=== PATIENT | male | born 1935 | race Caucasian/White ===

== ENCOUNTER 2016-08-22 09:04 | Outpatient (CLI) ==
[2016-05-14 18:26] VITALS: BMI 27.8
[2016-08-22 09:21] LABS: BILIRUBIN,URINE Negative (NEGATIVE); KETONES,URINE Negative (NEGATIVE); LEUKOCYTE ESTERASE ,URINE 2+ (NEGATIVE); NITRITE,URINE Positive (NEGATIVE); PROTEIN,URINE Negative (NEGATIVE); URINE, BLOOD Trace-intact (NEGATIVE)
[2016-08-22 09:23] LABS: ADD URINE MICROSCOPIC YES
== END 2016-08-22 09:05 | disposition home or self-care (01) ==
LOC: NONPT 09:04
PROVIDERS: ATTEND Emergency Medicine
DX: N39.0 Urinary tract infection, site not specified (principal)
CPT/HCPCS: 81001; 87086; 87186

== ENCOUNTER 2016-09-06 22:30 | Outpatient (CLI) ==
[2016-09-06 22:58] VITALS: BMI 21.9
== END 2016-09-06 22:31 | disposition home or self-care (01) ==
LOC: AMBL 22:30
PROVIDERS: ATTEND Internal Medicine Geriatric Medicine
DX: R68.0 Hypothermia, not associated with low environmental temperature (principal)

== ENCOUNTER 2016-09-06 22:42 | Emergency (ER) ==
[2016-09-06] MEDS ORDERED: SODIUM CHLORIDE 1,000 ML IV STA (22:43)
--- NOTE | 2016-09-06 22:50 | ED.PDOC ---
General ED Provider: Dr. CHELLE CHAVES Chief Complaint: Non-specific Complaint Stated Complaint: patient is brought from the skilled nursing with confusion, hallucination and low body temperature. worried about sepsis. Time Seen by Physician: 22:48 Information Source: [facility] Exam Limitations: No limitations Primary Care Provider: JUMANA CALIX Nursing and Triage Documentation Reviewed and Agree: Yes Neurological Complaint Exam - Altered Mental Status Complaint/Exam Current Mental Status: Confusion Last Known Well: yesterday Onset: Sudden Symptoms Are: Resolved Timing: Intermittent Initial Severity: Mild Current Severity: None Character: Reports: Confusion Aggravating: Reports: None Alleviating: Reports: Spontaneous resolution Associated Signs and Symptoms: Denies: Dizziness, Weakness, Headache, Fever, Illness, Nuchal rigidity, Seizure, Nausea, Vomiting, Recently depressed, Trauma Cardiac Risk Factors: Reports: None CVA Risk Factors: Reports: None Related Surgical History: Reports: None Carotid Bruit Present: Yes Glascow Coma Scale (see protocol): 15 Nystagmus Present: No Gag Reflex Present: Yes Meningeal Signs Positive: No Focal Weakness: Present: None Focal Sensory Loss: Present: None Gait: Unable [id number]: Normal Findings Romberg Test Positive: No Babinski Sign: Negative Right, Negative Left Heel to Toe Normal: Yes Signs of Injury: Present: Normal findings Thrombolytics Considered: No Differential Diagnoses: Metabolic Disorder, Hypoglycemia, TIA Review of Systems - Review Of Systems Constitutional: Reports: No symptoms Eyes: Reports: No symptoms Ears, Nose, Mouth, Throat: Reports: No symptoms Respiratory: Reports: No symptoms Cardiac: Reports: No symptoms GI: Reports: No symptoms : Reports: No symptoms Musculoskeletal: Reports: No symptoms Skin: Reports: No symptoms Neurological: Reports: No symptoms Endocrine: Reports: No symptoms Hematologic/Lymphatic: Reports: No symptoms All Other Systems: Reviewed and Negative Past Medical History - Past Medical History Previously Healthy: No Endocrine: Reports: Dyslipidemia Cardiovascular: Reports: Hypertension Respiratory: Reports: COPD Hematological: Reports: None Gastrointestinal: Reports: None Genitourinary: Reports: None Neuro/Psych: Reports: None Musculoskeletal: Reports: None Cancer: Reports: None - Surgical History General Surgical History: Reports: Unknown - Family History Family History: Reports: Unknown - Social History Smoking Status: Former smoker Hx Substance Use: No Alcohol Screening: Occasionally Physical Exam - Physical Exam Appearance: Well-appearing, No pain distress, Well-nourished Eyes: CELIA, EOMI, Conjunctiva clear ENT: Ears normal, Nose normal, Oropharynx normal Respiratory: Airway patent, Breath sounds clear, Breath sounds equal, Respirations nonlabored Cardiovascular: RRR, Pulses normal, No rub, No murmur GI/: Soft, Nontender, No masses, Bowel sounds normal, No Organomegaly Musculoskeletal: Normal strength, ROM intact, No edema, No calf tenderness Skin: Warm, Dry, Normal color Neurological: Sensation intact, Motor intact, Cranial nerves intact, Alert, Oriented Psychiatric: Affect appropriate, Mood appropriate Interpretation - Radiology Interpretation Radiology Interpretation By: Radiologist Radiology Results: No acute changes Exam Interpreted: CT Scan Re-Evaluation - Re-Evaluation Time of Re-Evaluation: 01:37 Status: Improved (patient states he feels better than he did few days ago when he was having a UTI ) Critical Care Note - Critical Care Note Total Time (mins): 15 Course - Course Hematology/Chemistry: 09/06/16 23:00 09/06/16 23:00 Orders, Labs, Meds: Lab Review 09/06/16 09/07/16 23:00 01:00 WBC 9.26 RBC 4.06 L Hgb 11.1 L Hct 33.7 L MCV 83.0 MCH 27.3 MCHC 32.9 RDW Coeff of Rosa 16.2 H Plt Count 158 Immature Gran % (Auto) 0.5 Neut % (Auto) 70.9 Lymph % (Auto) 11.6 Nash % (Auto) 12.4 H Eos % (Auto) 4.2 Baso % (Auto) 0.4 Immature Gran # (Auto) 0.1 Neut # 6.6 Lymph # 1.1 Nash # 1.2 Eos # 0.4 Baso # 0.0 Sodium 132 L Potassium 4.2 Chloride 93 L Carbon Dioxide 32 H Anion Gap 11.2 BUN 22 H Creatinine 0.79 Estimated GFR (MDRD) 94.00 BUN/Creatinine Ratio 27.84 Glucose 89 Lactic Acid 4.9 Calcium 9.2 Total Bilirubin 0.38 AST 30 ALT 17 Alkaline Phosphatase 81 Total Creatine Kinase 243 CK-MB (CK-2) 9.1 H* CK-MB (CK-2) % 3.27392 Troponin I < 0.0100 Total Protein 5.9 Albumin 2.9 L Globulin 3.0 Albumin/Globulin Ratio 0.97 Procalcitonin < 0.05 Urine Color Yellow Urine Clarity Clear Urine pH 5.5 Ur Specific [place] 1.010 Urine Protein Negative Urine Glucose (UA) Negative Urine Ketones Negative Urine Blood Negative Urine Nitrite Negative Urine Bilirubin Negative Urine Urobilinogen 1.0 Ur Leukocyte Esterase Negative Orders Category Date Time Status EKG-(ED ONLY) Stat CARDIO 09/06/16 22:44 Completed ED APPLY O2 .ONCE EMERGENCY 09/06/16 22:43 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 .ONCE EMERGENCY 09/06/16 22:43 Active ED IV/MEDIPORT/POWERPORT .ONCE EMERGENCY 09/06/16 22:43 Active BLOOD CULTURE Stat LAB 09/06/16 23:00 Received CBC W/ AUTO DIFF Stat LAB 09/06/16 23:00 Completed COMPREHENSIVE METABOLIC PANEL Stat LAB 09/06/16 23:00 Completed CREATINE KINASE Stat LAB 09/06/16 23:00 Completed LACTIC ACID Stat LAB 09/06/16 23:00 Completed PROCALCITONIN Stat LAB 09/06/16 23:00 Completed TROPONIN I Stat LAB 09/06/16 23:00 Completed URINALYSIS C & S IF INDICATED Stat LAB 09/07/16 01:00 Completed 0.9 % Sodium Chloride [Saline Flush] MEDS 09/06/16 22:43 Ordered 1 syr IVF PRN PRN Lidocaine HCl [Uro-Jet] MEDS 09/06/16 23:35 Discontinued 10 ml [id number] ONCE STA Sodium Chloride 0.9% [Sodium Chloride] 1,000 ml MEDS 09/06/16 22:43 Discontinued IV 1,000 mls/hr CT CHEST W/O CONTRAST Stat RADS 09/06/16 22:[address] HEAD W/O CONTRAST Stat RADS 09/06/16 22:45 Completed Medications Generic Name Dose Route Start Last Admin Trade Name Freq PRN Reason Stop Dose Admin Sodium Chloride 1 syr 09/06/16 22:43 Saline Flush IVF PRN PRN To flush IV Discontinued Medications Generic Name Dose Route Start Last Admin Trade Name Freq PRN Reason Stop Dose Admin Sodium Chloride 1,000 mls @ 1,000 mls/hr 09/06/16 22:43 09/07/16 00:39 Sodium Chloride IV 09/06/16 23:42 1,000 mls/hr .Q1H STA Administration Lidocaine HCl 10 ml 09/06/16 23:35 09/07/16 01:03 Uro-Jet [id number] 09/06/16 23:36 Not Given ONCE STA Vital Signs: Temp Pulse Resp BP Pulse Ox 09/06/16 22:44 96.9 F L 56 L 18 109/41 L 98 Departure - Departure Time of Disposition: Disposition: DISCH[facility] Discharge Problem: Altered awareness, transient Instructions: Altered Mental Status (ED) Condition: Fair Pt referred to PMD for follow-up: Yes Additional Instructions: Follow up with PC in 3-5 days Allergies/Adverse Reactions: Allergies acetaminophen [From Lortab] Adverse Reaction (Verified 03/07/16 16:45) Unknown amitriptyline [From Elavil] Adverse Reaction (Verified 03/07/16 16:45) Unknown atorvastatin [From Caduet] Adverse Reaction (Verified 03/07/16 16:45) Unknown bisoprolol [From Zebeta] Adverse Reaction (Verified 03/07/16 16:45) Unknown hydrocodone [From Lortab] Adverse Reaction (Verified 03/07/16 16:45) Unknown isradipine [From DynaCirc] Adverse Reaction (Verified 03/07/16 16:45) Unknown paroxetine [From Paxil] Adverse Reaction (Verified 03/07/16 16:45) Unknown Home Medications: Ambulatory Orders Aspirin [Aspirin Chewable] 81 mg PO DAILYWM 03/07/16 Clonazepam 0.5 mg PO DAILY #30 tablet 03/12/16 Clopidogrel Bisulfate [Plavix] 75 mg PO DAILY #30 tablet 03/12/16 Donepezil HCl [Aricept] 10 mg PO DAILY #30 tablet 03/12/16 Escitalopram Oxalate [Lexapro] 10 mg PO DAILY #30 tablet 03/12/16 Tamsulosin HCl [Flomax] 0.4 mg PO DAILY #30 cap.er.24h 03/12/16 Ferrous Sulfate 325 mg PO BID 05/14/16 Hydrocodone/Acetaminophen [Bonesteel 5-325 Tablet] 1 each PO Q8H PRN 05/14/16 Acyclovir [Zovirax] 200 mg PO Q6HR #1 capsule 05/22/16 Albuterol Sulfate 0.083% Neb [Albuterol 0.083% Neb] 1 vial NEB RTQ6H PRN #1 vial.neb 05/22/16 Carvedilol [Coreg] 6.25 mg PO BIDWM #60 tablet 05/22/16 Cephalexin [Keflex] 500 mg PO Q12HR #10 capsule 05/22/16 Furosemide [Lasix Tab] 40 mg PO QDAC #30 tablet 05/22/16 Losartan Potassium 100 mg PO DAILY #30 tablet 05/22/16 Potassium Chloride [K-Tab ER] 10 meq PO DAILY #30 tablet.er 05/22/16 Prednisone 10 mg PO BIDWM #10 tablet 05/22/16 Disposition Discussed With: Patient
[2016-09-06 22:58] VITALS: TEMP 96.9; BMI 21.9
[2016-09-06 23:17] LABS: BASOPHILS % (AUTO) 0.4 % (0.0-3.0); EOSINOPHILS # (AUTO) 0.4 K/ul (0.0-0.7); EOSINOPHILS % (AUTO) 4.2 % (0.0-7.0); HEMATOCRIT 33.7 % (42.0-52.0); HEMOGLOBIN 11.1 g/dl (14.0-18.0); IMMATURE GRANULOCYTE % (AUTO) 0.5 % (0.0-5.0); LYMPHOCYTES # (AUTO) 1.1 K/uL (0.60-3.4); LYMPHOCYTES % (AUTO) 11.6 (10.0-50.0); MEAN CORPUSCULAR HEMOGLOBIN 27.3 pg (27.0-31.0); MEAN CORPUSCULAR HGB CONC 32.9 (31.8-35.4); MONOCYTES # (AUTO) 1.2 K/uL (0.4-2.0); MONOCYTES % (AUTO) 12.4 (0-10); NEUTROPHILS # (AUTO) 6.6 K/ul (2.0-6.9); NEUTROPHILS % (AUTO) 70.9; PLATELET COUNT 158 10^3/uL (140-440); RED BLOOD COUNT 4.06 10^6/ul (4.70-6.10); WHITE BLOOD COUNT 9.26 K/ul (4.2-10.2)
--- NOTE | 2016-09-06 23:29 | CT ---
EXAM: CT brain without contrast HISTORY: Mental status change TECHNIQUE: CT of the brain without intravenous contrast FINDINGS: There is no acute hemorrhage midline shift or mass effect. No hydrocephalus or abnormal extra-axial fluid collection. Generalized involutional atrophy, moderate. Chronic microvascular ch anges of the white matter tracts, moderate. Prior right frontal insult with encephalomalacia. No a cute large vessel territorial infarct is seen. The bony cranium appears normal. The visualized para nasal sinuses are clear. Soft tissues without significant abnormality. IMPRESSION: 1. Chronic changes as described. No acute intracranial abnormality is seen.
[2016-09-06] MEDS ORDERED: URO-JET MUCOUSMEMB STA (23:35)
--- NOTE | 2016-09-06 23:48 | CT ---
EXAM: CT of the chest without intravenous contrast 09/06/2016. Sagittal and coronal reformatted im ages obtained HISTORY: Cough COMPARISON: 05/21/2016. FINDINGS: The heart size appears within normal limits. There is no pericardial effusion. Atherosclerotic vascular disease. Severe emphysematous change. Small right pleural effusion. Bibasilar atelectasis and/or pneumonitis. Limited views of the upper abdomen show aneurysmal dilatation of the abdominal aorta. This is only partially visualized. On the inferior most image, image 83, this measures 4.1 cm diameter. IMPRESSION: 1. Severe emphysema. 2. Small right pleural effusion. 3. Bibasilar atelectasis and/or pneumonitis. 4. 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 5. Anterior wedging configuration within the central thoracic spine appears chronic and stable.
[2016-09-06 23:51] LABS: ALANINE AMINOTRANSFERASE 17 U/L (12-78); ALBUMIN 2.9 g/dL (3.4-5.0); ALBUMIN/GLOBULIN RATIO 0.97; ALKALINE PHOSPHATASE 81 U/L (56-119); ANION GAP 11.2; ASPARTATE AMINO TRANSFERASE 30 U/L (15-37); BILIRUBIN,TOTAL 0.38 mg/dL (0.00-1.20); BLOOD UREA NITROGEN 22 mg/dL (7-18); BUN/CREATININE RATIO 27.84; CALCIUM 9.2 mg/dL (8.2-10.2); CARBON DIOXIDE 32 mmol/L (23-31); CHLORIDE 93 mmol/L (98-107); CREATINE KINASE 243 U/L; CREATININE 0.79 mg/dL (0.60-1.10); GLUCOSE 89 mg/dL (82-115); POTASSIUM 4.2 mmol/L (3.5-5.1); SODIUM 132 mmol/L (136-145); TOTAL PROTEIN 5.9 g/dL (5.8-8.1)
[2016-09-06 23:52] LABS: CREATINE KINASE MB 9.1 ng/ml (0.0-3.6)
[2016-09-07 01:05] LABS: BILIRUBIN,URINE Negative (NEGATIVE); KETONES,URINE Negative (NEGATIVE); LEUKOCYTE ESTERASE ,URINE Negative (NEGATIVE); NITRITE,URINE Negative (NEGATIVE); PH,URINE 5.5 (5-9); PROTEIN,URINE Negative (NEGATIVE); URINE, BLOOD Negative (NEGATIVE)
[2016-09-07 01:20] LABS: ADD URINE MICROSCOPIC NO
[2016-09-07 01:39] VITALS: BP 110/50
[2016-09-07 01:50] LABS: ABG BASE EXCESS 4 (-2.0-2.0); ABG HCO3 29.9 (22.0-26.0); ABG PCO2 56.6 mmHg (35-45)
[2016-09-07 01:51] LABS: ABG TCO2 32 (22.0-28.0)
== END 2016-09-07 02:07 ==
LOC: ED 22:42
DX: R40.4 Transient alteration of awareness (principal); R41.82 Altered mental status, unspecified; E78.5 Hyperlipidemia, unspecified; I10 Essential (primary) hypertension; Z79.899 Other long term (current) drug therapy
CPT/HCPCS: 36415; 80053; 81001; 82550; 82553; 82803; 83605; 84145; 84484; 85025; 87040; 93005; 93010; 96360; 96361; 99283